=== PATIENT | male | born 1930 | race Caucasian/White ===

== ENCOUNTER 2021-06-24 09:54 | Day surgery (SDC) | payer MEDICARE, OTHER ==
[~2021-06-24] VITALS: Ht 172.7 cm; Wt 80.7 kg
[2021-06-24] VITALS (10 sets, daily range): BP systolic 129–165; BP diastolic 71–91
[2021-06-24] MEDS ORDERED: MULT-1085 PO (10:16)
[2021-06-24] MEDS ORDERED: NAPR-56 PO (10:18)
[2021-06-24] MEDS ORDERED: OMEP20TA5 PO (10:18)
[2021-06-24] MEDS ORDERED: Levothyroxine PO (10:19)
[2021-06-24] MEDS ORDERED: ROSU10TA28 PO (10:20)
[2021-06-24] MEDS ORDERED: sodium bicarbonate (8.4%) inj. 150 ML in dextrose 5%-water 1,000 ML IV ONE (10:20)
[2021-06-24] MEDS ORDERED: ASPI81TA52 PO (10:21)
[2021-06-24] MEDS ORDERED: AMLO-140 PO (10:22)
[2021-06-24] MEDS ORDERED: diphenhydrAMINE 25mg capsule PO PRN (10:30)
[2021-06-24 10:36] LABS: BASOPHILS # (AUTO) 0.1 X10'3 (0-0.2); BASOPHILS % (AUTO) 1.1 % (0-1); EOSINOPHILS # (AUTO) 0.2 X10'3 (0-0.9); HEMATOCRIT 42.9 % (42.0-52.0); HEMOGLOBIN 14.4 g/dl (14.0-17.9); LYMPHOCYTES % (AUTO) 13.7 % (21-51); MEAN CORPUSCULAR HEMOGLOBIN 29.2 PG (27.0-31.0); MEAN CORPUSCULAR HGB CONC 33.5 g/dL (33.0-36.5); MEAN CORPUSCULAR VOLUME 87.4 FL (78-98); MONOCYTES # (AUTO) 0.8 X10'3 (0-0.9); MONOCYTES % (AUTO) 11.2 % (2-12); NEUTROPHILS # (AUTO) 5.3 X10'3 (1.8-7.7); PLATELET COUNT 214 X10'3 (140-440); RED BLOOD COUNT 4.91 X10'6 (4.70-6.10); RED CELL DISTRIBUTION WIDTH 14.8 % (11.5-14.5); WHITE BLOOD COUNT 7.4 X10'3 (4.5-11.0)
[2021-06-24 10:53] LABS: ALBUMIN 3.6 G/DL (3.4-5.0); ANION GAP 12 (8-16); BLOOD UREA NITROGEN 29 MG/DL (7-18); BUN/CREATININE RATIO 17.9 (5.4-32.0); CHLORIDE 112 MMOL/L (99-107); CREATININE 1.62 MG/DL (0.60-1.10); GLUCOSE 103 MG/DL (70-104); MAGNESIUM 2.1 MG/DL (1.5-2.4); POTASSIUM 4.3 MMOL/L (3.5-5.1); SODIUM 144 MMOL/L (135-145); eGFR 40 ML/MIN
[2021-06-24] MEDS ORDERED: heparin 1,000unit/ml 10ml vial 10 ML ONE (11:40)
[2021-06-24] MEDS ORDERED: LIDOcaine 1% (10mg/ml)w/preservative injection 20ml MDV ONE (11:40)
[2021-06-24] MEDS ORDERED: fentaNYL/PF 50MCG/1 ML 2ML syringe ONE (11:40)
[2021-06-24] MEDS ORDERED: iohexol 350 MG/ML 50ML vial IV ONE (11:40)
[2021-06-24] MEDS ORDERED: iohexol 350MG/ML 100ml bottle IV ONE ×3 (11:40→13:11)
[2021-06-24] MEDS ORDERED: midazolam 1 mg/ML 2ml injection ONE ×3 (11:40→13:41)
[2021-06-24] MEDS ORDERED: verapamil 2.5 mg/ml inj IV ONE (11:47)
[2021-06-24] MEDS ORDERED: nitroGLYCERIN-Tridil 50MG/D5W 250 ML IV ONE (11:47)
[2021-06-24] MEDS ORDERED: ticagrelor 90mg tablet PO ONE (14:55)
[2021-06-24] MEDS ORDERED: proCHLORperazine 10 MG/2 ml inj IV PRN (15:15)
[2021-06-24] MEDS ORDERED: HYDROcodone/acetaminophen 5mg/325mg tablet PO PRN (15:15)
[2021-06-24] MEDS ORDERED: ondansetron/PF 4mg/2ml inj IV PRN (15:15)
[2021-06-24] MEDS ORDERED: OXAZEpam 15mg capsule PO PRN (15:15)
[2021-06-24] MEDS ORDERED: HYDROcodone/acetaminophen 10/325mg tab PO PRN (15:15)
== END 2021-06-24 19:25 | disposition home or self-care (01) ==
LOC: SSTAY O 09:54
PROVIDERS: ATTEND Internal Medicine Cardiovascular Disease
DX: R94.39 Abnormal result of other cardiovascular function study (principal); R06.02 Shortness of breath; R07.89 Other chest pain; I25.10 Atherosclerotic heart disease of native coronary artery without angina pectoris; I12.9 Hypertensive chronic kidney disease with stage 1 through stage 4 chronic kidney disease, or unspecified chronic kidney disease; N18.30 Chronic kidney disease, stage 3 unspecified; E03.9 Hypothyroidism, unspecified; M19.90 Unspecified osteoarthritis, unspecified site; E78.00 Pure hypercholesterolemia, unspecified; Z85.46 Personal history of malignant neoplasm of prostate; Z79.899 Other long term (current) drug therapy; Z79.82 Long term (current) use of aspirin; Z79.01 Long term (current) use of anticoagulants
CPT/HCPCS: 36415; 80048; 83735; 85025; 85610; 93005; 93458; 93571; 99152; 99153; C1725; C1751; C1760; C1769; C1874; C1894; C9600; J1644; J2001; J2250; J3010; J7030; Q0163; Q9967; A4620; A5120; A6258; A6449; C9601; J3490